=== PATIENT | female | born 1995 | race African-American/Black ===

== ENCOUNTER 2025-06-02 03:18 | Emergency (ER) | payer MEDICAID ==
[2025-06-02 03:42] LABS: BASOPHILS ABSOLUTE AUTO 0.04 K/uL (0.00-0.20); BASOPHILS PERCENT AUTO 0.7 % (0.0-1.0); EOSINOPHILS ABSOLUTE AUTO 0.19 K/uL (0.00-0.45); EOSINOPHILS PERCENT AUTO 3.2 % (0.0-6.0); IMMATURE GRAN ABSOLUTE AUTO 0.00 K/uL (0.00-0.05); IMMATURE GRAN PERCENT AUTO 0.0 % (0.0-0.4); LYMPHOCYTES ABSOLUTE AUTO 3.12 K/uL (1.00-4.80); LYMPHOCYTES PERCENT AUTO 52.3 % (24.0-44.0); MEAN PLATELET VOLUME 10.2 fL (9.4-12.3); MONOCYTES ABSOLUTE AUTO 0.53 K/uL (0.00-0.80); MONOCYTES PERCENT AUTO 8.9 % (0.0-8.0); NEUTROPHILS ABSOLUTE AUTO 2.08 K/uL (1.80-7.70); NEUTROPHILS PERCENT AUTO 34.9 % (41.0-71.0); NRBC ABSOLUTE 0.00 K/uL (0.00-0.02); NRBC PERCENT 0.0 /100WBC (0.0-0.2); PLATELET COUNT,PLT 257 K/uL (150-400); RED BLOOD CELL COUNT 4.63 M/uL (4.10-5.30); WHITE BLOOD CELL COUNT,WBC 5.96 K/uL (3.9-11.3)
[2025-06-02] MEDS: Ketorolac 30 MG/ML SDV IVPUSH ONE (03:42)
[2025-06-02 03:58] LABS: A/G RATIO 0.9 (0.9-1.6); ALANINE AMINOTRANSFERASE,ALT 22.0 IU/L (14-63); ASPARTATE AMNIOTRANSFERASE,AST 16.0 IU/L (15-37); BILIRUBIN TOTAL 0.3 mg/dL (0.2-1.0); BLOOD UREA NITROGEN,BUN 12.0 mg/dL (7.0-18.0); CARBON DIOXIDE,CO2 26.0 mmol/L (21.0-32.0); CHLORIDE,CL 105.0 mmol/L (98-107); CREATININE 0.9 mg/dL (0.6-1.0); EST CRCL DRUG DOSING (CG) 76.3 mL/min; GLUCOSE RANDOM 100.0 mg/dL (74-106); POTASSIUM,K 3.8 mmol/L (3.5-5.1); PROTEIN TOTAL,TP 6.9 g/dL (6.4-8.2); SODIUM,NA 142.0 mmol/L (136-145)
[2025-06-02 03:59] LABS: ESTIMATED GFR 89.0 mL/min (>60)
[2025-06-02] MEDS: LORazepam 2 MG/ML SDV IVPUSH ONE (04:31)
== END 2025-06-02 05:52 ==
LOC: MW.ED 03:18
DX: F11.23 Opioid dependence with withdrawal (principal); E86.0 Dehydration; Z88.6 Allergy status to analgesic agent; Z79.899 Other long term (current) drug therapy
CPT/HCPCS: 36415; 80053; 84703; 85025; 96361; 96374; 96375; 99284; A9270; J1885; J2060; J7030

== ENCOUNTER 2025-06-04 21:10 | Emergency (ER) | payer MEDICAID | END 2025-06-04 23:02 | disposition left against medical advice (07) | LOC: MW.ED 21:10 | DX: Z53.21 Procedure and treatment not carried out due to patient leaving prior to being seen by health care provider (principal) | CPT/HCPCS: 99282 ==

== ENCOUNTER 2025-06-06 11:19 | Emergency (ER) | payer MEDICAID ==
[2025-06-06] MEDS: droPERidol 2.5 MG/ML SDV IM ONE (11:56)
[2025-06-06] MEDS: Ketorolac 30 MG/ML SDV IM ONE (11:58)
== END 2025-06-06 13:08 | disposition home or self-care (01) ==
LOC: MW.ED 11:19
DX: F11.23 Opioid dependence with withdrawal (principal); F12.23 Cannabis dependence with withdrawal; F17.200 Nicotine dependence, unspecified, uncomplicated; Z79.899 Other long term (current) drug therapy; Z88.6 Allergy status to analgesic agent
CPT/HCPCS: 96372; 99283; J1790; 99284